=== PATIENT | female | born 1950 | race Hispanic/Latino ===

== ENCOUNTER 2018-10-26 11:10 | Day surgery (SDC) | payer OTHER ==
[2018-10-26 11:42] VITALS: BMI 28.3
[2018-10-26] MEDS ORDERED: Lactated Ringer's 500 ML IV ONE (11:55)
[2018-10-26] MEDS ORDERED: Propofol 10 mg/ml Inj (20 ML) ONE (12:06)
[2018-10-26 12:41] VITALS: TEMP 97.6; O2SAT 100
[2018-10-26 12:51] VITALS: BP 143/77; PULSE 88; RESP 18
== END 2018-10-26 14:00 | disposition home or self-care (01) ==
LOC: H.ENDO 11:10
PROVIDERS: ATTEND Internal Medicine Gastroenterology
DX: Z12.11 Encounter for screening for malignant neoplasm of colon (principal); I10 Essential (primary) hypertension; E05.90 Thyrotoxicosis, unspecified without thyrotoxic crisis or storm; K57.30 Diverticulosis of large intestine without perforation or abscess without bleeding
CPT/HCPCS: G0121; J2001; J2704; J7120